=== PATIENT | female | born 1990 | race Caucasian/White ===

== ENCOUNTER 2018-11-26 11:31 | Emergency (ER) | payer SELFPAY ==
[~2018-11-26] VITALS: Ht 167.6 cm; Wt 80.8 kg
[2018-11-26 11:35] VITALS: BP 139/97
== END 2018-11-26 12:06 | disposition home or self-care (01) ==
LOC: ED 11:59
DX: Z00.00 Encounter for general adult medical examination without abnormal findings (principal); Z86.14 Personal history of Methicillin resistant Staphylococcus aureus infection
CPT/HCPCS: 99281

== ENCOUNTER 2019-05-10 22:20 | Emergency (ER) | payer MEDICAID ==
[~2019-05-10] VITALS: Ht 167.6 cm; Wt 86.8 kg
[2019-05-10 22:22] VITALS: BP 128/81
[2019-05-10] MEDS ORDERED: ACETAMINOPHEN 500 MG TABLET ONE (23:00)
[2019-05-10] MEDS ORDERED: ACETAMINOPHEN 500 MG TABLET PO ONE (23:00)
--- NOTE | 2019-05-10 23:03 | NUR ---
PT MEDICATED PER MAR
== END 2019-05-10 23:46 | disposition home or self-care (01) ==
LOC: ED 23:30
DX: S93.621A Sprain of tarsometatarsal ligament of right foot, initial encounter (principal); Z86.14 Personal history of Methicillin resistant Staphylococcus aureus infection; Z86.73 Personal history of transient ischemic attack (TIA), and cerebral infarction without residual deficits; X58.XXXA Exposure to other specified factors, initial encounter; Y93.89 Activity, other specified; Y92.89 Other specified places as the place of occurrence of the external cause; Y99.8 Other external cause status
CPT/HCPCS: 99283

== ENCOUNTER 2019-07-04 15:52 | Emergency (ER) | payer MEDICAID ==
[~2019-07-04] VITALS: Ht 167.6 cm; Wt 85.0 kg
[2019-07-04 16:14] VITALS: BP 124/84
--- NOTE | 2019-07-04 16:31 | NUR ---
L ankle pain & swelling after twist injury today. Slight lateral swelling of ankle. CMS intact. Ice applied to ankle.
--- NOTE | 2019-07-04 18:18 | NUR ---
Shalom wrap to L ankle.Patient given discharge instructions and they have confirmed that they understand the instructions ambulatory with steady gait. Req. wheelchair to d/c desk.
== END 2019-07-04 18:20 | disposition home or self-care (01) ==
LOC: ED 18:11
DX: S93.492A Sprain of other ligament of left ankle, initial encounter (principal); W18.30XA Fall on same level, unspecified, initial encounter; Y93.89 Activity, other specified; Y92.009 Unspecified place in unspecified non-institutional (private) residence as the place of occurrence of the external cause; Y99.8 Other external cause status
CPT/HCPCS: 99283

== ENCOUNTER 2019-08-13 17:16 | Emergency (ER) | payer MEDICAID, OTHER ==
[~2019-08-13] VITALS: Ht 170.2 cm; Wt 86.3 kg
--- NOTE | 2019-08-13 18:04 | NUR ---
LENS ASSORTER: PT TO ROOM FROM ANYI ZHANG
[2019-08-13 18:09] LABS: BASOPHILS # (AUTO) 0.07 x10^3/uL (0-0.1); BASOPHILS % (AUTO) 1 % (0-1); EOSINOPHILS # (AUTO) 0.16 x10^3/uL (0-0.4); EOSINOPHILS % (AUTO) 1 % (1-7); LYMPHOCYTES # (AUTO) 1.98 x10^3/uL (1-3.4); LYMPHOCYTES % (AUTO) 18 % (22-44); MD NO; MEAN CORPUSCULAR HEMOGLOBIN 30.4 pg (27.0-34.8); MEAN CORPUSCULAR VOLUME 89.5 fL (80-100); MEAN PLATELET VOLUME 8.4 fL (7.4-10.4); MONOCYTES # (AUTO) 0.96 x10^3/uL (0.2-0.8); MONOCYTES % (AUTO) 8 % (2-9); NEUTROPHILS # (AUTO) 8.14 x10^3/uL (1.8-6.8); NEUTROPHILS % (AUTO) 72 % (42-75); PLATELET COUNT 249 x10^3/uL (130-400); RED BLOOD COUNT 4.77 x10^6/uL (3.82-5.3); RED CELL DISTRIBUTION WIDTH 14.7 % (9.6-15.2)
--- NOTE | 2019-08-13 18:16 | NUR ---
FIRST CONTACT WITH PT. PT C/O "I JUST FEEL LIKE I'M HAVING A MISCARRIAGE". PT REPORTS SPOTTING TIME 5 DAYS. LMP APPROX 07/25/19. PT DENIES HOME TEST. UNK IF . PT ACTIVELY TRYING TO GET . PT TEARFUL IN ROOM. PT'S AOX4. RESPS EVEN AND UNLABORED. BP/SPO2 MONITORS IN PLACE. CALL LIGHT WITHIN REACH.
[2019-08-13 18:17] LABS: ALANINE AMINOTRANSFERASE 20 U/L (12-78); ALBUMIN 3.8 g/dL (3.4-5.0); ANION GAP 8 mmol/L (5-15); CALCIUM 8.8 mg/dL (8.5-10.1); CHLORIDE 113 mmol/L (98-107); CREATININE 0.68 mg/dL (0.55-1.02)
[2019-08-13 18:22] LABS: ALKALINE PHOSPHATASE 70 U/L (45-117); BILIRUBIN,TOTAL 0.2 mg/dL (0.2-1.0); TOTAL PROTEIN 7.6 g/dL (6.4-8.2)
--- NOTE | 2019-08-13 19:01 | NUR ---
REPORT GIVEN TO TONY JUAN.
--- NOTE | 2019-08-13 19:07 | NUR ---
Report received from YESSICA Esquivel. This RN to assume care. Patient in US.
[2019-08-13 19:22] LABS: MICROSCOPIC AUTO
[2019-08-13 19:24] LABS: CULTURE INDICATED? NO
[2019-08-13 19:26] VITALS: BP 147/98
== END 2019-08-13 20:04 | disposition home or self-care (01) ==
LOC: ED 18:16
DX: O03.4 Incomplete spontaneous abortion without complication (principal)
CPT/HCPCS: 36415; 76801; 80053; 81001; 84702; 84703; 85025; 86901; 99284

== ENCOUNTER 2019-08-17 18:26 | Emergency (ER) | payer OTHER ==
[~2019-08-17] VITALS: Ht 167.6 cm; Wt 87.0 kg
[2019-08-17 18:29] VITALS: BP 149/100
--- NOTE | 2019-08-17 18:38 | NUR ---
PT WAS TOLD SHE WAS TO COME BACK TO BE CHECKED AFTER HAVING A MISCARRAIGE 4 DAYS AGO.
[2019-08-17 19:14] LABS: BASOPHILS # (AUTO) 0.02 x10^3/uL (0-0.1); BASOPHILS % (AUTO) 0 % (0-1); EOSINOPHILS # (AUTO) 0.13 x10^3/uL (0-0.4); EOSINOPHILS % (AUTO) 2 % (1-7); LYMPHOCYTES % (AUTO) 25 % (22-44); MD NO; MEAN CORPUSCULAR HEMOGLOBIN 30.4 pg (27.0-34.8); MEAN CORPUSCULAR HGB CONC 33.8 g/dL (32.4-35.8); MEAN CORPUSCULAR VOLUME 90.1 fL (80-100); MEAN PLATELET VOLUME 8.3 fL (7.4-10.4); MONOCYTES # (AUTO) 0.55 x10^3/uL (0.2-0.8); MONOCYTES % (AUTO) 7 % (2-9); NEUTROPHILS # (AUTO) 4.91 x10^3/uL (1.8-6.8); NEUTROPHILS % (AUTO) 65 % (42-75); PLATELET COUNT 269 x10^3/uL (130-400); RED BLOOD COUNT 4.47 x10^6/uL (3.82-5.3); RED CELL DISTRIBUTION WIDTH 15.6 % (9.6-15.2)
--- NOTE | 2019-08-17 19:21 | NUR ---
Received report from YESSICA Self. This RN to assume care. Awaiting lab results.
--- NOTE | 2019-08-17 20:18 | NUR ---
Discharge instructions given. All questions and concerns addressed. Patient ambulatory with a steady gait. Belongings with patient.
== END 2019-08-17 20:19 | disposition home or self-care (01) ==
LOC: ED 19:24
DX: O03.4 Incomplete spontaneous abortion without complication (principal)
CPT/HCPCS: 36415; 84702; 85025; 99283

== ENCOUNTER 2019-11-06 10:20 | Emergency (ER) | payer MEDICAID ==
[~2019-11-06] VITALS: Ht 170.2 cm; Wt 83.0 kg
[2019-11-06] MEDS ORDERED: KETOROLAC 30 MG/1 ML IM ONE (11:00)
[2019-11-06] MEDS ORDERED: KETOROLAC 30 MG/1 ML ONE (11:12)
--- NOTE | 2019-11-06 11:18 | NUR ---
medicated per emar patient now reporting right hand numbness Provider made aware
--- NOTE | 2019-11-06 11:59 | NUR ---
TO CT SCAN
[2019-11-06] MEDS ORDERED: HYDROcodone/APAP 5/325 TABLET PO ONE (12:30)
[2019-11-06] MEDS ORDERED: HYDROcodone/APAP 5/325 TABLET ONE (12:39)
[2019-11-06] MEDS ORDERED: METHOCARBAMOL 750 MG TABLET ONE (12:48)
[2019-11-06] MEDS ORDERED: PROPARACAINE OPHTH 0.5%, 15ML ONE (12:49)
--- NOTE | 2019-11-06 12:57 | NUR ---
DISCHARGED HOME VIA [facility] MEDICATED WITH NARCOTIC AND MILD SEDATIVE
[2019-11-06 12:58] VITALS: BP 136/75
[2019-11-06] MEDS ORDERED: METHOCARBAMOL 750 MG TABLET PO ONE (13:00)
== END 2019-11-06 13:00 | disposition home or self-care (01) ==
LOC: ED 11:37
DX: M25.511 Pain in right shoulder (principal); M62.838 Other muscle spasm; R20.2 Paresthesia of skin; Z86.73 Personal history of transient ischemic attack (TIA), and cerebral infarction without residual deficits
CPT/HCPCS: 72125; 73030; 96372; 99284; J1885

== ENCOUNTER 2020-07-26 09:47 | Emergency (ER) | payer BC, MEDICAID ==
[~2020-07-26] VITALS: Ht 170.2 cm; Wt 78.0 kg
[2020-07-26] MEDS ORDERED: LISI-170 PO (10:02)
--- NOTE | 2020-07-26 10:22 | NUR ---
US tech at bedside for exam. Orders reviewed.
[2020-07-26] MEDS ORDERED: ONDANSETRON 2MG/ML, 2ML ONE (10:24)
[2020-07-26] MEDS ORDERED: HYDROmorphone 1 MG/ML, 1ML INJ ONE (10:24)
[2020-07-26] MEDS ORDERED: HYDROmorphone 2 MG/ML, 1ML IVPush PRN (10:30)
[2020-07-26] MEDS ORDERED: SODIUM CHLORIDE FLUSH 10ML SYR IVF ONE (10:30)
[2020-07-26] MEDS ORDERED: ONDANSETRON 2MG/ML, 2ML IVPush ONE (10:30)
--- NOTE | 2020-07-26 10:32 | NUR ---
IV started and ordered meds given while US tech working on exam.
--- NOTE | 2020-07-26 10:41 | NUR ---
US done. Pt states some relief from severity of pain since manager medicaid but not resolved completely. Pt aware of need for UA sample.
--- NOTE | 2020-07-26 10:47 | NUR ---
computer technology teacher arrived for draw. Pt stated prior to IV start that lab had already drawn her, so labs not drawn with IV start for that reason.
--- NOTE | 2020-07-26 11:01 | NUR ---
UA sample obtained and sent. VS reassessed and pain reassessed. Pain 6/10 after medical doctor nuclear medicine per pt. Pt remains extremely restless and moaning.
[2020-07-26 11:06] LABS: MEAN CORPUSCULAR HEMOGLOBIN 29.9 pg (27.0-34.8); MEAN CORPUSCULAR HGB CONC 34.3 g/dL (32.4-35.8); MEAN PLATELET VOLUME 8.4 fL (7.4-10.4); PLATELET COUNT 254 x10^3/uL (130-400); RED BLOOD COUNT 5.49 x10^6/uL (3.82-5.3); RED CELL DISTRIBUTION WIDTH 14.4 % (9.6-15.2)
[2020-07-26 11:10] LABS: ALANINE AMINOTRANSFERASE 25 U/L (12-78); ANION GAP 11 mmol/L (5-15); CALCIUM 9.2 mg/dL (8.5-10.1); CHLORIDE 110 mmol/L (98-107)
[2020-07-26 11:12] LABS: ALKALINE PHOSPHATASE 83 U/L (45-117); BILIRUBIN,TOTAL 0.3 mg/dL (0.2-1.0); TOTAL PROTEIN 8.1 g/dL (6.4-8.2)
[2020-07-26 11:23] LABS: MICROSCOPIC AUTO
[2020-07-26] MEDS ORDERED: SODIUM CHLORIDE 0.9% 1,000ML IVBOLUS ONE ×2 (11:30→14:00)
[2020-07-26] MEDS ORDERED: METOPROLOL TARTRATE 25 MG TAB ONE (11:30)
[2020-07-26] MEDS ORDERED: METOPROLOL TARTRATE 25 MG TAB PO ONE (11:30)
--- NOTE | 2020-07-26 11:31 | NUR ---
Labs and US results reviewed. Noted elevated WBC with elevated HR and RR present causing SIRS/Sepsis ping. LEE and notified immediately and orders received.
--- NOTE | 2020-07-26 11:38 | NUR ---
Metoprolol given for HTN and first liter of NS for 30mL/kg bolus started at this time. MD at bedside for exam and discussion of plan of care. UA results remain pending.
--- NOTE | 2020-07-26 11:43 | NUR ---
UA results reviewed. MD aware of availablitly of these before ordering MRI.
[2020-07-26 11:56] LABS: MD YES
--- NOTE | 2020-07-26 11:57 | NUR ---
Pt going to MRI now via [facility] with [facility].
[2020-07-26 12:00] LABS: <PLATELET ESTIMATE> ADEQUATE; <RBC MORPHOLOGY> NORMAL; BAND#(MANUAL) 5.21 x10^3/uL; BANDS%(MANUAL) 27 % (0-7); LARGE PLATELETS 1+; LYMPH#(MANUAL) 1.35 x10^3/uL (1-3.4); LYMPHS% (MANUAL) 7 % (22-44); MONOS#(MANUAL) 1.16 x10^3/uL (0.3-2.7); MONOS% (MANUAL) 6 % (2-9); REACTIVE LYMPHS # (MANUAL) 0.19 x10^3/uL (0-0); REACTIVE LYMPHS % (MANUAL) 1 % (0-0); SEG#(MANUAL) 11.39 x10^3/uL (1.8-6.8); SEGS% (MANUAL) 59 % (42-75)
--- NOTE | 2020-07-26 12:45 | NUR ---
Pt still in MRI at this time. Awaiting her return to the room for lab draw for lactic acid and BC x2 as required for SIRS/Sepsis.
--- NOTE | 2020-07-26 12:53 | NUR ---
Pt back on unit, no acute changes while off unit other than decrease in HR to 75. Pain remains 6/10 reported rating. Pt updated to wait for lab technologist for draw, radiologist to read MRI's, and then lab results before MD comes to discuss plan of care. Pt notified of UA sample being sent for culture due to results found.
--- NOTE | 2020-07-26 13:00 | NUR ---
gas plant technician at bedside for draw now.
[2020-07-26] MEDS ORDERED: CEFTRIAXONE PMX 1GM/50ML 50 ML ONE (13:43)
--- NOTE | 2020-07-26 13:51 | NUR ---
Second IVF started with Rocephin as IVPB. VS reassessed and PCXR completed at this time.
[2020-07-26] MEDS ORDERED: CEFTRIAXONE PMX 1GM/50ML 50 ML IV ONE (14:00)
[2020-07-26 14:36] VITALS: BP 113/76
== END 2020-07-26 14:39 | disposition home or self-care (01) ==
LOC: ED 11:44
DX: O26.891 Other specified pregnancy related conditions, first trimester (principal); D72.825 Bandemia; R10.11 Right upper quadrant pain; R11.2 Nausea with vomiting, unspecified; Z3A.01 Less than 8 weeks gestation of pregnancy
CPT/HCPCS: 36415; 71045; 74181; 76700; 80053; 81001; 83605; 83690; 85025; 87040; 87086; 96361; 96365; 96375; 99285; J0696; J1170; J2405; J7030